=== PATIENT | female | born 1970 | race Caucasian/White ===

== ENCOUNTER 2020-08-21 10:17 | Inpatient (IN) | payer MEDICAID ==
[2020-08-15 11:59] LABS: BASOPHILS # (AUTO) 0.1 X10'3 (0-0.2); BASOPHILS % (AUTO) 0.9 % (0-1); EOSINOPHILS # (AUTO) 0.4 X10'3 (0-0.9); EOSINOPHILS % (AUTO) 4.7 % (0-6); MEAN CORPUSCULAR HEMOGLOBIN 26.8 PG (27.0-31.0); MEAN CORPUSCULAR VOLUME 81.4 FL (78-98); MONOCYTES # (AUTO) 0.7 X10'3 (0-0.9); MONOCYTES % (AUTO) 9.1 % (2-12); NEUTROPHILS # (AUTO) 4.4 X10'3 (1.8-7.7); NEUTROPHILS % (AUTO) 58.3 % (42-75); PRE OP HEMATOCRIT 44.2 % (35.0-45.0); PRE OP HEMOGLOBIN 14.6 g/dL (12.0-16.0); PRE OP PLATELET COUNT 267 X10'3 (140-440); RED BLOOD COUNT 5.43 X10'6 (4.20-5.60); RED CELL DISTRIBUTION WIDTH 13.1 % (11.5-14.5)
[2020-08-15 12:17] LABS: ALBUMIN 4.1 G/DL (3.4-5.0); ALBUMIN/GLOBULIN RATIO 1.1 (1.1-1.5); ALKALINE PHOSPHATASE 59 IU/L (46-116); BLOOD UREA NITROGEN 12 MG/DL (7-18); BUN/CREATININE RATIO 18.2 (6.6-38.0); CALCIUM 9.3 MG/DL (8.5-10.1); CHLORIDE 103 MMOL/L (99-107); CREATININE 0.66 MG/DL (0.40-0.90); PRE OP ALT 41 U/L (30-65); PRE OP ANION GAP 12 (8-16); PRE OP AST 22 U/L (10-37); PRE OP BILIRUB, TOTAL 0.4 MG/DL (0.0-1.0); PRE OP GLUCOSE 94 MG/DL (70-104); PRE OP SODIUM 141 MMOL/L (135-145); TOTAL PROTEIN 7.9 G/DL (6.4-8.2); eGFR > 90 ML/MIN
[~2020-08-21] VITALS: Ht 172.7 cm; Wt 91.7 kg
[~2020-08-21 10:17] MED LIST: ACET-2971 PO; DULO60CA65 PO; LISI10TA27 PO; MAGN500C16 PO; NAPR220T67 PO; ceFAZolin 2gm in dextrose, iso 50 ML IV ONE; famotidine 20mg tablet PO ONE; ringers solution, lacted 1,000 ML IV SCH; tranexamic acid 650mg tablet PO ONE; vancomycin 1,500 MG in NS 300ml IV soln IV ONE
[2020-08-23] VITALS (18 sets, daily range): BP systolic 88–133; BP diastolic 38–83
[2020-08-23] MEDS ORDERED: ringers solution, lacted 1,000 ML IV SCH ×2 (05:00→07:55)
[2020-08-23] MEDS ORDERED: vancomycin 1,500 MG in NS 300ml IV soln IV ONE (05:30)
[2020-08-23] MEDS ORDERED: famotidine 20mg tablet PO ONE (05:30)
[2020-08-23] MEDS ORDERED: ceFAZolin 2gm in dextrose, iso 50 ML IV ONE (05:30)
[2020-08-23] MEDS ORDERED: tranexamic acid 650mg tablet PO ONE (05:30)
[2020-08-23] MEDS ORDERED: [UNRECOGNIZED DRUG - OTHER] PO (06:07)
[2020-08-23] MEDS ORDERED: VIT E PO (06:07)
[2020-08-23] MEDS ORDERED: B COMPLEX PO (06:07)
[2020-08-23] MEDS ORDERED: ketorolac trometh. 30mg/ml inj. ONE (06:38)
[2020-08-23] MEDS ORDERED: ROPIVAcaine 0.5% (5mg/ml) 30ml vial ONE ×3 (06:38→10:04)
[2020-08-23] MEDS ORDERED: tetracaine 1% (10mg/ml) pres. free inj. ONE ×2 (07:10→07:25)
[2020-08-23] MEDS ORDERED: MIDAZolam 1mg/ml 10ml vial ONE (07:11)
[2020-08-23] MEDS ORDERED: morphine /PF 1mg/ml 10ml inj. ONE (07:11)
[2020-08-23] MEDS ORDERED: propofol inj 20 ML IV ONE ×4 (07:21→10:05)
[2020-08-23] MEDS ORDERED: LIDOcaine 2% (20mg/ml) 5ml vial ONE (07:21)
[2020-08-23] MEDS ORDERED: cloNIDine hcl/PF 100mcg/ml inj ONE ×2 (07:25)
[2020-08-23] MEDS ORDERED: MIDAZolam 1 MG/ML 5ML VIAL ONE (07:27)
[2020-08-23] MEDS ORDERED: diphenhydrAMINE 50 mg/ml inj ONE (07:33)
[2020-08-23] MEDS ORDERED: morphine 4 MG/ML inj SYRINge IV PRN (07:55)
[2020-08-23] MEDS ORDERED: ROPIVAcaine 0.2% (10 MG/5 ML) BOLUS INJECTION ADDCANAL PRN (07:55)
[2020-08-23] MEDS ORDERED: labetalol 20mg/4ml (5mg/ml) syringe IV PRN (07:55)
[2020-08-23] MEDS ORDERED: ROPIVAcaine 0.2%/PF PUMP/bolus 550 ML ADDCANAL SCH (07:55)
[2020-08-23] MEDS ORDERED: ondansetron/PF 4mg/2ml inj IV PRN ×3 (07:55→09:55)
[2020-08-23] MEDS ORDERED: hydrALAZINE 20mg/ml inj. IV PRN (07:55)
[2020-08-23] MEDS ORDERED: fentaNYL/PF 50MCG/1 ML 2ML syringe IV PRN ×2 (07:55)
[2020-08-23] MEDS ORDERED: morphine 2 MG/ML inj. syringe IV PRN (07:55)
[2020-08-23] MEDS ORDERED: diphenhydrAMINE 50 mg/ml inj IV PRN (08:00)
[2020-08-23] MEDS ORDERED: dexamethasone sod phosphate 4mg/ml inj. ONE ×2 (08:08→10:36)
--- NOTE | 2020-08-23 09:45 | NUR ---
Received from OR via BED, accompanied by Anesthesiologist DR TRONCOSO and report given by Anesthesiolgist. PATIENT A&OX4, DENIES PAIN, V/S WNL, NEUROVASCULAR CHECKS INTACT, SCD ON, 18G PIV RUE, RIGHT DRESSING KNEE WRAP POWDER PACK CDI W/ ONQ BALL AT 2ML/HR. SENSATIONS AT T10, F/C DRAINING CLEAR YELLOW URINE
[2020-08-23] MEDS ORDERED: HYDROmorphone 1 mg/ml syringe IV PRN (09:55)
[2020-08-23] MEDS ORDERED: acetaminophen 325mg tablet PO PRN (09:55)
[2020-08-23] MEDS ORDERED: diphenhydrAMINE 25mg capsule PO PRN ×2 (09:55)
[2020-08-23] MEDS ORDERED: bisacodyl 10mg suppository rectal RC PRN (09:55)
[2020-08-23] MEDS ORDERED: oxyCODONE IR 5mg (immed. release) tablet PO PRN ×2 (09:55)
[2020-08-23] MEDS ORDERED: HYDROmorphone inj. 0.5 MG/0.5 ML DISP.SYRIN IV PRN (09:55)
[2020-08-23] MEDS ORDERED: non-formulary drug (Acetaminophen (Tylenol Arthritis) 2 TAB) PO PRN (09:55)
[2020-08-23] MEDS ORDERED: naproxen sodium 220mg tablet PO PRN (09:55)
[2020-08-23] MEDS ORDERED: magnesium hydroxide 30ml (MOM) UD suspension PO PRN (09:55)
--- NOTE | 2020-08-23 10:01 | NUR ---
received report from ashlee pineda in recovery
[2020-08-23] MEDS ORDERED: fentaNYL/PF 50MCG/1 ML 2ML syringe ONE (10:04)
--- NOTE | 2020-08-23 10:35 | NUR ---
PATIENT A&OX4, DENIES PAIN, V/S WNL, NEUROVASCULAR CHECKS INTACT, SCD ON, 18G PIV RUE, RIGHT DRESSING KNEE WRAP POWDER PACK CDI W/ ONQ BALL AT 2ML/HR. SENSATIONS AT T10, F/C DRAINING CLEAR YELLOW URINE. PATIENT TAKEN TO 4015B WITH ALL BELONGINGS AND HOOKED UP TO MONITORS IN ROOM AND REPORT GIVEN TO ROPEWALK ROPE MAKER WHO HAS TAKEN OVER PATIENT CARE.
[2020-08-23] MEDS: potassium cl 20mEq in 1/2 NS 1,000 ML IV SCH ×2 (11:57→16:05)
[2020-08-23] MEDS: acetaminophen 325mg tablet PO SCH ×2 (13:59→20:27)
[2020-08-23] MEDS: ceFAZolin/D5W- 1GM premix 50 ML IV SCH ×2 (16:07→23:45)
--- NOTE | 2020-08-23 18:05 | NUR ---
gave report to ashlee lowery
--- NOTE | 2020-08-23 18:53 | NUR ---
Patient in room [facility] 4015. I have received report from Kathleen LEYVA and had the opportunity to ask questions and assume patient care.
[2020-08-23] MEDS ORDERED: vancomycin/NS 1 GM ADD-VANTAGE 250 ML IV SCH (20:00)
[2020-08-23] MEDS ORDERED: sennosides 8.6mg tablet PO SCH (21:00)
[2020-08-24 02:00] VITALS: BP 114/59
[2020-08-24] MEDS: acetaminophen 325mg tablet PO SCH ×2 (02:43→07:36)
[2020-08-24] MEDS: potassium cl 20mEq in 1/2 NS 1,000 ML IV SCH ×2 (02:43→09:55)
[2020-08-24 06:00] VITALS: BP 125/70
--- NOTE | 2020-08-24 06:29 | NUR ---
Problems reprioritized. Patient report given, questions answered & plan of care reviewed with Alexandria LEYVA.
--- NOTE | 2020-08-24 06:48 | NUR ---
Patient in room [facility]TH[facility] 4015. I have received report from AUTUMN Harry and had the opportunity to ask questions and assume patient care.
[2020-08-24 07:38] VITALS: BP_SYST 114
[2020-08-24] MEDS ORDERED: magnesium oxide 400mg tablet PO SCH (08:00)
[2020-08-24] MEDS ORDERED: lisinopril 10 MG tablet PO SCH (08:00)
[2020-08-24] MEDS ORDERED: duloxetine 30mg CAPSULE.DR PO SCH (08:00)
[2020-08-24 08:20] LABS: ANION GAP 9 (8-16); CHLORIDE 102 MMOL/L (99-107); POTASSIUM 3.7 MMOL/L (3.5-5.1); SODIUM 138 MMOL/L (135-145); TOTAL CARBON DIOXIDE 27.3 MMOL/L (24-32)
[2020-08-24] MEDS ORDERED: aspirin 325mg tablet PO SCH (08:30)
[2020-08-24 08:32] LABS: BASOPHILS % (AUTO) 0.2 % (0-1); EOSINOPHILS # (AUTO) 0.1 X10'3 (0-0.9); EOSINOPHILS % (AUTO) 1.3 % (0-6); HEMATOCRIT 35.9 % (35.0-45.0); HEMOGLOBIN 11.8 g/dl (12.0-16.0); LYMPHOCYTES # (AUTO) 1.7 X10'3 (1.1-4.8); LYMPHOCYTES % (AUTO) 16.3 % (21-51); MEAN CORPUSCULAR HEMOGLOBIN 26.8 PG (27.0-31.0); MEAN CORPUSCULAR HGB CONC 32.7 g/dL (33.0-36.5); MEAN CORPUSCULAR VOLUME 81.9 FL (78-98); MEAN PLATELET VOLUME 8.1 FL (7.4-10.4); MONOCYTES # (AUTO) 1.2 X10'3 (0-0.9); MONOCYTES % (AUTO) 11.3 % (2-12); NEUTROPHILS # (AUTO) 7.2 X10'3 (1.8-7.7); NEUTROPHILS % (AUTO) 70.9 % (42-75); PLATELET COUNT 214 X10'3 (140-440); RED BLOOD COUNT 4.39 X10'6 (4.20-5.60); RED CELL DISTRIBUTION WIDTH 13.4 % (11.5-14.5); WHITE BLOOD COUNT 10.2 X10'3 (4.5-11.0)
[2020-08-24] MEDS ORDERED: SENN-173 PO (10:44)
[2020-08-24] MEDS ORDERED: OXYC-658 PO (10:44)
[2020-08-24] MEDS ORDERED: ASPI-1 PO (11:08)
[2020-08-25] MEDS ORDERED: acetaminophen 325mg tablet PO PRN (09:55)
== END 2020-08-24 11:55 | disposition home or self-care (01) | DRG 302 ==
LOC: EDSTATUS 14:45 → UNDOADMIN 08-23 05:10 → PAS IN 08-23 05:10 → EDSTATUS 08-23 07:30 → PAS IN 08-23 09:54 → ORTHO 4S 08-23 10:35 → UNDODISIN 08-24 11:55
PROVIDERS: ADMIT Orthopaedic Surgery; ATTEND Orthopaedic Surgery
PROC: 3E0T3BZ Introduction of Anesthetic Agent into Peripheral Nerves and Plexi, Percutaneous Approach (ICD-10-PCS; 2020-08-23)
PROC: 8E0YXBZ Computer Assisted Procedure of Lower Extremity (ICD-10-PCS; 2020-08-23)
PROC: 8E0Y0CZ Robotic Assisted Procedure of Lower Extremity, Open Approach (ICD-10-PCS; 2020-08-23)
PROC: 0SRC0J9 Replacement of Right Knee Joint with Synthetic Substitute, Cemented, Open Approach (ICD-10-PCS; principal; 2020-08-23 07:06)
DX: M17.31 Unilateral post-traumatic osteoarthritis, right knee (principal); D62 Acute posthemorrhagic anemia; Z79.899 Other long term (current) drug therapy; Z79.82 Long term (current) use of aspirin
CPT/HCPCS: 36415; 80051; 80053; 82948; 85025; 87081; 87635; 97110; 97161; 97530; A4215; A6258; A7000; C1713; C1758; C1776; G0378; J0690; J0735; J1100; J1200; J1885; J2001; J2250; J2270; J2405; J2704; J2795; J3010; J3370; J3480; J7040; J7120